=== PATIENT | female | born 1940 | race Caucasian/White ===

== ENCOUNTER 2024-09-03 14:50 | Inpatient (IN) | payer MEDICARE, BC ==
[2024-09-03] MEDS ORDERED: Docusate Sodium 100 MG Cap PO PRN (16:57)
[2024-09-03] MEDS ORDERED: Melatonin 3 MG Tab PO PRN (16:57)
[2024-09-03] MEDS ORDERED: Ondansetron 4 MG Tab.DIS PO PRN (16:57)
[2024-09-03 17:58] LABS: BASOPHILS ABSOLUTE AUTO 0.02 10^3/uL (0.00-0.10); BASOPHILS PERCENT AUTO 0.2 % (0.0-1.0); EOSINOPHILS ABSOLUTE AUTO 0.15 10^3/uL (0.10-0.30); EOSINOPHILS PERCENT AUTO 1.8 % (1.0-3.0); HEMATOCRIT 30.8 % (37.0-47.0); HEMOGLOBIN 10.2 g/dL (12.0-16.0); IMMATURE GRAN ABSOLUTE AUTO 0.02 10^3/uL (0.00-0.50); IMMATURE GRAN PERCENT AUTO 0.2 % (0.0-5.0); LYMPHOCYTES ABSOLUTE AUTO 0.99 10^3/uL (1.00-4.00); LYMPHOCYTES PERCENT AUTO 11.9 % (20.0-40.0); MEAN CORPUSCULAR HEMOGLOBIN 31.8 pg (27.0-31.0); MEAN CORPUSCULAR HGB CONC 33.1 g/dL (32.0-36.0); MEAN PLATELET VOLUME 9.4 fL (7.4-10.4); MONOCYTES ABSOLUTE AUTO 0.69 10^3/uL (0.10-0.80); MONOCYTES PERCENT AUTO 8.3 % (2.0-8.0); NEUTROPHILS ABSOLUTE AUTO 6.45 10^3/uL (2.50-7.00); NEUTROPHILS PERCENT AUTO 77.6 % (50.0-70.0); PLATELET COUNT,PLT 181 10^3/uL (150-400); RED BLOOD CELL COUNT 3.21 10^6/uL (3.80-5.50); RED CELL DISTRIBUTION WIDTH 14.2 % (11.5-14.5); WHITE BLOOD CELL COUNT,WBC 8.32 10^3/uL (5.00-10.00)
[2024-09-03 18:15] LABS: ALANINE AMINOTRANSFERASE,ALT 11 U/L (14-63); ALBUMIN 2.45 g/dL (3.40-5.00); ALKALINE PHOSPHATASE 74 U/L (46-116); ANION GAP 12.5 mmol/L (5-15); ASPARTATE AMNIOTRANSFERASE,AST 16 U/L (15-37); BILIRUBIN TOTAL 0.9 mg/dL (0.2-1.0); BLOOD UREA NITROGEN,BUN 17 mg/dL (7-18); CALCIUM 8.7 mg/dL (8.7-10.3); CARBON DIOXIDE,CO2 25.9 mmol/L (21.0-32.0); CHLORIDE,CL 102 mmol/L (98-107); CREATININE 0.75 mg/dL (0.51-1.17); ESTIMATED GFR 78 mL/min (>=60); GLUCOSE RANDOM 175 mg/dL (70-140); MAGNESIUM 1.9 mg/dL (1.8-2.4); POTASSIUM,K 4.4 mmol/L (3.5-5.1); PROTEIN TOTAL,TP 6.1 g/dL (6.4-8.2); SODIUM,NA 136 mmol/L (136-145)
[2024-09-03] MEDS ORDERED: 50% Dextrose in Water 50 ML Syringe IVPUSH PRN (18:52)
[2024-09-03] MEDS ORDERED: Glucagon,Human Recombinant 1 MG Vial IM PRN (18:52)
[2024-09-03] MEDS: Acetaminophen 325 MG Tab PO SCH (19:05)
[2024-09-04 06:17] LABS: APPEARANCE,URINE CLEAR (CLEAR); BILIRUBIN,URINE NEGATIVE (NEGATIVE); COLOR,URINE YELLOW (YELLOW); GLUCOSE,URINE NEGATIVE (NEGATIVE); KETONES,URINE NEGATIVE (NEGATIVE); LEUKOCYTE ESTERASE,URINE NEGATIVE (NEGATIVE); NITRITE,URINE NEGATIVE (NEGATIVE); OCCULT BLOOD,URINE NEGATIVE (NEGATIVE); PROTEIN,URINE NEGATIVE (NEGATIVE); UROBILINOGEN,URINE 0.2 E.U./dL (0.2-1.0)
[2024-09-04 07:28] LABS: BASOPHILS ABSOLUTE AUTO 0.02 10^3/uL (0.00-0.10); BASOPHILS PERCENT AUTO 0.3 % (0.0-1.0); EOSINOPHILS ABSOLUTE AUTO 0.24 10^3/uL (0.10-0.30); EOSINOPHILS PERCENT AUTO 3.8 % (1.0-3.0); HEMATOCRIT 29.2 % (37.0-47.0); HEMOGLOBIN 9.7 g/dL (12.0-16.0); IMMATURE GRAN ABSOLUTE AUTO 0.02 10^3/uL (0.00-0.50); IMMATURE GRAN PERCENT AUTO 0.3 % (0.0-5.0); LYMPHOCYTES ABSOLUTE AUTO 1.26 10^3/uL (1.00-4.00); LYMPHOCYTES PERCENT AUTO 19.9 % (20.0-40.0); MEAN CORPUSCULAR HEMOGLOBIN 31.8 pg (27.0-31.0); MEAN CORPUSCULAR HGB CONC 33.2 g/dL (32.0-36.0); MEAN CORPUSCULAR VOLUME 95.7 fL (82.0-92.0); MEAN PLATELET VOLUME 9.4 fL (7.4-10.4); MONOCYTES ABSOLUTE AUTO 0.68 10^3/uL (0.10-0.80); MONOCYTES PERCENT AUTO 10.7 % (2.0-8.0); NEUTROPHILS ABSOLUTE AUTO 4.11 10^3/uL (2.50-7.00); PLATELET COUNT,PLT 179 10^3/uL (150-400); RED BLOOD CELL COUNT 3.05 10^6/uL (3.80-5.50); RED CELL DISTRIBUTION WIDTH 14.1 % (11.5-14.5); WHITE BLOOD CELL COUNT,WBC 6.33 10^3/uL (5.00-10.00)
[2024-09-04 07:49] LABS: ANION GAP 11.8 mmol/L (5-15); CALCIUM 8.8 mg/dL (8.7-10.3); CARBON DIOXIDE,CO2 26.5 mmol/L (21.0-32.0); CREATININE 0.66 mg/dL (0.51-1.17); EST CRCL DRUG DOSING (CG) 47.03 mL/min; POTASSIUM,K 4.3 mmol/L (3.5-5.1); TSH ULTRASENSITIVE 0.756 uIU/mL (0.340-4.820)
[2024-09-04] MEDS: Insulin Lispro 100 Unit/ML 3 ML KwikPen SUBCUT SCH (08:01)
[2024-09-04 08:24] LABS: HEMOGLOBIN A1C 6.2 % (4.3-5.7)
[2024-09-04] MEDS ORDERED: DULoxetine 30 MG Cap PO SCH (09:00)
[2024-09-04] MEDS: amLODIPine 5 MG Tab PO SCH (09:40)
[2024-09-04] MEDS: Sennosides/Docusate Sodium 50-8.6 MG Tab PO SCH (09:41)
[2024-09-04] MEDS: Lisinopril 10 MG Tab PO SCH (09:41)
[2024-09-04] MEDS: Furosemide 40 MG/4 ML VIAL IVPUSH SCH (09:41)
[2024-09-05] MEDS: Aspirin 81 MG Tab.EC PO SCH ×2 (09:05→19:59)
[2024-09-06] MEDS: amLODIPine 5 MG Tab PO SCH (08:56)
[2024-09-06] MEDS: Pantoprazole 40 MG Tab.CR PO SCH (08:56)
[2024-09-06] MEDS: Pantoprazole 40 MG Tab.CR ONE (09:12)
[2024-09-07 07:21] LABS: BASOPHILS ABSOLUTE AUTO 0.06 10^3/uL (0.00-0.10); EOSINOPHILS PERCENT AUTO 4.9 % (1.0-3.0); HEMATOCRIT 30.5 % (37.0-47.0); IMMATURE GRAN ABSOLUTE AUTO 0.03 10^3/uL (0.00-0.50); IMMATURE GRAN PERCENT AUTO 0.5 % (0.0-5.0); LYMPHOCYTES ABSOLUTE AUTO 1.61 10^3/uL (1.00-4.00); LYMPHOCYTES PERCENT AUTO 26.4 % (20.0-40.0); MEAN CORPUSCULAR HEMOGLOBIN 31.3 pg (27.0-31.0); MEAN CORPUSCULAR HGB CONC 32.8 g/dL (32.0-36.0); MEAN CORPUSCULAR VOLUME 95.6 fL (82.0-92.0); MEAN PLATELET VOLUME 9.2 fL (7.4-10.4); MONOCYTES PERCENT AUTO 9.8 % (2.0-8.0); NEUTROPHILS PERCENT AUTO 57.4 % (50.0-70.0); PLATELET COUNT,PLT 228 10^3/uL (150-400); RED BLOOD CELL COUNT 3.19 10^6/uL (3.80-5.50); RED CELL DISTRIBUTION WIDTH 14.3 % (11.5-14.5)
[2024-09-07 07:36] LABS: ANION GAP 12.1 mmol/L (5-15); CALCIUM 8.8 mg/dL (8.7-10.3); CREATININE 0.63 mg/dL (0.51-1.17); EST CRCL DRUG DOSING (CG) 49.26 mL/min; MAGNESIUM 1.8 mg/dL (1.8-2.4); POTASSIUM,K 4.1 mmol/L (3.5-5.1)
[2024-09-07] MEDS: Magnesium Oxide 500 MG Tab PO ONE (12:34)
[2024-09-08] MEDS: Acetaminophen/HYDROcodone 325-5 MG Tab PO PRN (02:17)
[2024-09-10] MEDS: Insulin Lispro 100 Unit/ML 3 ML KwikPen SUBCUT SCH (09:39)
[2024-09-11] MEDS: Insulin Lispro 100 Unit/ML 3 ML KwikPen SUBCUT SCH (08:12)
[2024-09-13] MEDS: Sennosides/Docusate Sodium 50-8.6 MG Tab PO PRN (20:10)
[2024-09-14] MEDS: Polyethylene Glycol 3350 Powder 17 GM Packet PO PRN (08:28)
== END 2024-09-14 14:30 | disposition home health service (06) | DRG 561 ==
LOC: KA.MS 14:50
PROVIDERS: ADMIT Orthopaedic Surgery; ATTEND Internal Medicine
DX: Z47.1 Aftercare following joint replacement surgery (principal); R53.81 Other malaise; Z96.651 Presence of right artificial knee joint; I10 Essential (primary) hypertension; R09.02 Hypoxemia; E11.9 Type 2 diabetes mellitus without complications; Z88.0 Allergy status to penicillin; Z79.899 Other long term (current) drug therapy
CPT/HCPCS: 36415; 71045; 80048; 80053; 80061; 81003; 82947; 83036; 83605; 83735; 84145; 84443; 85025; 86140; 99306-GT; 99307-GT; 99316-GT; A9270-GY; J1815-GY; Q3014

== ENCOUNTER 2025-06-04 08:59 | Inpatient (IN) | payer MEDICARE, BC ==
[2025-06-04] MEDS: Sennosides/Docusate Sodium 50-8.6 MG Tab PO SCH (20:01)
[2025-06-16 22:30] LABS: BLOOD UREA NITROGEN,BUN 26.0 mg/dL (7-18); CARBON DIOXIDE,CO2 24.4 mmol/L (21.0-32.0); CHLORIDE,CL 104.0 mmol/L (98-107); CREATININE 0.76 mg/dL (0.51-1.17); EST CRCL DRUG DOSING (CG) 42.02 mL/min; ESTIMATED GFR 76.0 mL/min (>=60); GLUCOSE RANDOM 186.0 mg/dL (70-140); POTASSIUM,K 3.8 mmol/L (3.5-5.1); SODIUM,NA 140.0 mmol/L (136-145)
[2025-06-16] MEDS: Iopamidol 755 Mg/ML 100 ML Bottle IV ONE (23:08)
[2025-06-17] MEDS: Heparin Sodium 5,000 Units/ML Vial IV ONE (00:02)
[2025-06-17] MEDS: Heparin Sodium/D5W 250 ML IV SCH (00:05)
== END 2025-06-17 01:30 | DRG 948 ==
LOC: KA.MS 12:04
PROVIDERS: ADMIT Internal Medicine; ATTEND Internal Medicine
DX: R53.81 Other malaise (principal); I10 Essential (primary) hypertension; K59.09 Other constipation; M54.9 Dorsalgia, unspecified; G89.29 Other chronic pain; Z98.51 Tubal ligation status; Z98.890 Other specified postprocedural states; Z79.82 Long term (current) use of aspirin; Z79.899 Other long term (current) drug therapy; Z88.0 Allergy status to penicillin; Z96.652 Presence of left artificial knee joint
CPT/HCPCS: 36415; 71275; 80048; 84484; 85730; 97110-GP; 97116-GP; 97161-GP; 97165-GO; 97530-GO; 97535-GO; A9270-GY; J1644; Q3014; Q9967

== ENCOUNTER 2025-06-18 14:33 | Inpatient (IN) | payer MEDICARE, BC ==
[2025-06-20] MEDS: Sennosides/Docusate Sodium 50-8.6 MG Tab PO SCH (11:46)
== END 2025-06-29 16:13 | disposition home health service (06) | DRG 948 ==
LOC: KA.MS 19:45
PROVIDERS: ADMIT Internal Medicine; ATTEND Internal Medicine
DX: R53.81 Other malaise (principal); I51.9 Heart disease, unspecified; I10 Essential (primary) hypertension; K59.09 Other constipation; M54.9 Dorsalgia, unspecified; G89.29 Other chronic pain; E11.9 Type 2 diabetes mellitus without complications; Z96.652 Presence of left artificial knee joint; Z79.899 Other long term (current) drug therapy; Z98.51 Tubal ligation status; Z88.0 Allergy status to penicillin; Z79.01 Long term (current) use of anticoagulants
CPT/HCPCS: 97110-GP; 97116-GP; 97161-GP; 97165-GO; 97530-GO; 97535-GO; A9270-GY; Q3014